=== PATIENT | male | born 1960 | race Caucasian/White ===

== ENCOUNTER 2023-05-17 15:55 | Inpatient (IN) | payer MEDICAID ==
[~2023-05-17] VITALS: Ht 182.9 cm; Wt 115.7 kg
[2023-05-17 16:00] VITALS: BP 135/84; PULSE 74; RESP 20; TEMP 97.2
[2023-05-17] MEDS ORDERED: HEPARIN 25,000 UNITS PREMIX 250 ML IV SCH (19:00)
[2023-05-17 20:30] VITALS: BP 147/64; PULSE 76; RESP 18; TEMP 98.8
[2023-05-17 21:37] LABS: CALCIUM 9.5 mg/dL (8.5-10.1); CARBON DIOXIDE 27 mEq/L (21-32); CHLORIDE 103 mEq/L (98-107); GLUCOSE 105 mg/dL (70-105); INDEX HEMOLYSI 1 (1-3); INDEX ICTERIC 1 (1-4); INDEX LIPEMIC 1 (1-3); INR 1.1; PARTIAL THROMBOPLASTIN TIME 25.7 sec (23.4-31.0); PROTHROMBIN TIME 11.6 sec (9.6-11.0); SODIUM 139 mEq/L (136-145); UREA NITROGEN BLOOD 20 mg/dL (7-21)
[2023-05-17 21:41] LABS: CREATININE 0.7 mg/dL (0.6-1.3)
[2023-05-17 21:44] LABS: BASOPHILS % 0.6 % (0.0-2.0); EOSINOPHILS % 2.1 % (0.0-5.0); HEMATOCRIT. 42.6 % (42.0-52.0); HEMOGLOBIN. 14.7 g/dL (14.0-18.0); LYMPHOCYTES % 20.6 % (20.0-50.0); MEAN CORPUSCULAR HEMOGLOBIN 28.5 pg (28.0-32.0); MEAN CORPUSCULAR HGB CONC 34.6 g/dL (31.0-37.0); MEAN CORPUSCULAR VOLUME 82.4 fL (80.0-94.0); MEAN PLATELET VOLUME 7.5 fl (7.4-10.4); MONOCYTES % 7.9 % (2.0-8.0); NEUTROPHILS % 68.8 % (40.0-76.0); PLATELET 190 x1000/uL (130-400); RED BLOOD CELL COUNT 5.17 mill/uL (4.7-6.1); RED CELL DISTRIBUTION WIDTH 13.5 % (11.6-14.6); WHITE BLOOD COUNT 6.7 x1000/uL (4.5-11.0)
[2023-05-17] MEDS ORDERED: HEPARIN 80 UNITS/KG BOLUS IV SCH (22:00)
[2023-05-17 22:02] LABS: POTASSIUM 2.7 mEq/L (3.5-5.1)
[2023-05-17] MEDS ORDERED: POTASSIUM CHLORIDE 20MEQ TABLET SR PO NR (23:15)
[2023-05-17] MEDS: HYDRALAZINE HCL 25MG TABLET PO SCH (23:42)
[2023-05-17] MEDS: HEPARIN 25,000 UNITS PREMIX 250 ML IV SCH (23:50)
[2023-05-18] VITALS (7 sets, daily range): BP systolic 125–165; BP diastolic 67–105; PULSE 69–92; RESP 18–20; TEMP 97.5–99
[2023-05-18] MEDS ORDERED: ACETAMINOPHEN 325MG TABLET PO PRN (00:15)
[2023-05-18] MEDS ORDERED: ONDANSETRON HCL 4MG/2ML INJ IV PRN (00:15)
[2023-05-18] MEDS ORDERED: HEPARIN BOLUS PRN aPTT 37-44 IV (04:00)
[2023-05-18 04:22] LABS: CHLORIDE 105 mEq/L (98-107); INDEX HEMOLYSI 1 (1-3); INDEX ICTERIC 1 (1-4); INDEX LIPEMIC 1 (1-3); POTASSIUM 3.1 mEq/L (3.5-5.1); SODIUM 138 mEq/L (136-145)
[2023-05-18 04:27] LABS: CALCIUM 9.4 mg/dL (8.5-10.1); CARBON DIOXIDE 28 mEq/L (21-32); CREATININE 0.8 mg/dL (0.6-1.3); GLUCOSE 119 mg/dL (70-105); UREA NITROGEN BLOOD 20 mg/dL (7-21)
[2023-05-18 04:29] LABS: BASOPHILS % 0.6 % (0.0-2.0); HEMATOCRIT. 42.1 % (42.0-52.0); HEMOGLOBIN. 14.7 g/dL (14.0-18.0); LYMPHOCYTES % 15.6 % (20.0-50.0); MEAN CORPUSCULAR HEMOGLOBIN 28.8 pg (28.0-32.0); MEAN CORPUSCULAR HGB CONC 34.9 g/dL (31.0-37.0); MEAN CORPUSCULAR VOLUME 82.7 fL (80.0-94.0); MEAN PLATELET VOLUME 7.6 fl (7.4-10.4); MONOCYTES % 6.4 % (2.0-8.0); NEUTROPHILS % 75.4 % (40.0-76.0); PLATELET 189 x1000/uL (130-400); RED BLOOD CELL COUNT 5.09 mill/uL (4.7-6.1); RED CELL DISTRIBUTION WIDTH 13.3 % (11.6-14.6); WHITE BLOOD COUNT 8.4 x1000/uL (4.5-11.0)
[2023-05-18] MEDS: HEPARIN 25,000 UNITS PREMIX 250 ML IV SCH (05:50)
[2023-05-18] MEDS: HYDRALAZINE HCL 25MG TABLET PO SCH ×3 (06:00→21:08)
[2023-05-18] MEDS: AMLODIPINE 5MG TABLET PO SCH (10:26)
[2023-05-18] MEDS: HEPARIN BOLUS PRN aPTT <36 IV (13:19)
[2023-05-18] MEDS ORDERED: POTASSIUM CHLORIDE INJ 40 MEQ in DEXT 5% WATER 250 ML IV NR (23:30)
[2023-05-19] VITALS: BP 130/74; PULSE 95; RESP 18; TEMP 101.7
[2023-05-19] MEDS ORDERED: CEFTRIAXONE 1,000 MG in DEXTROSE 5% WATER 50 ML IV SCH (01:30)
[2023-05-19 04:00] VITALS: BP_SYST 180; BP_SYST 97; BP_DIAS 48; BP_DIAS 91; PULSE 68; PULSE 81; RESP 18; TEMP 97.9
[2023-05-19] MEDS: HEPARIN BOLUS PRN aPTT <36 IV (04:54)
[2023-05-19] MEDS: HEPARIN 25,000 UNITS PREMIX 250 ML IV SCH (06:38)
[2023-05-19] MEDS: HYDRALAZINE HCL 25MG TABLET PO SCH ×3 (06:39→22:38)
[2023-05-19 07:05] LABS: BASOPHILS % 0.6 % (0.0-2.0); EOSINOPHILS % 2.2 % (0.0-5.0); HEMATOCRIT. 40.6 % (42.0-52.0); HEMOGLOBIN. 14.2 g/dL (14.0-18.0); LYMPHOCYTES % 18.4 % (20.0-50.0); MEAN CORPUSCULAR HEMOGLOBIN 29.1 pg (28.0-32.0); MEAN CORPUSCULAR VOLUME 83.2 fL (80.0-94.0); MEAN PLATELET VOLUME 7.6 fl (7.4-10.4); MONOCYTES % 7.3 % (2.0-8.0); NEUTROPHILS % 71.5 % (40.0-76.0); PLATELET 197 x1000/uL (130-400); RED BLOOD CELL COUNT 4.88 mill/uL (4.7-6.1); RED CELL DISTRIBUTION WIDTH 13.4 % (11.6-14.6); WHITE BLOOD COUNT 7.5 x1000/uL (4.5-11.0)
[2023-05-19 08:00] VITALS: BP 155/84; PULSE 88; RESP 18; TEMP 96.3
[2023-05-19 08:46] LABS: POTASSIUM 3.3 mEq/L (3.5-5.1)
[2023-05-19 08:55] LABS: CALCIUM 9.1 mg/dL (8.5-10.1); CREATININE 0.8 mg/dL (0.6-1.3)
[2023-05-19] MEDS: AMLODIPINE 5MG TABLET PO SCH (10:11)
[2023-05-19 12:00] VITALS: BP 149/92; PULSE 78; RESP 17; TEMP 97.7
[2023-05-19] MEDS ORDERED: POTASSIUM CHLORIDE 20MEQ TABLET SR PO NR (14:15)
[2023-05-19 16:00] VITALS: BP 151/104; PULSE 86; RESP 18; TEMP 96.8
[2023-05-19 20:00] VITALS: BP 149/87; PULSE 72; RESP 16; TEMP 97.1
[2023-05-19] MEDS: ENOXAPARIN 120MG/0.8ML SYR SUBCUT SCH (20:00)
[2023-05-20 04:00] VITALS: BP 142/82; PULSE 67; RESP 16; TEMP 97
[2023-05-20] MEDS: HYDRALAZINE HCL 25MG TABLET PO SCH ×4 (05:19→21:01)
[2023-05-20 06:55] LABS: BASOPHILS % 0.8 % (0.0-2.0); HEMATOCRIT. 39.9 % (42.0-52.0); HEMOGLOBIN. 13.6 g/dL (14.0-18.0); LYMPHOCYTES % 20.2 % (20.0-50.0); MEAN CORPUSCULAR HEMOGLOBIN 28.4 pg (28.0-32.0); MEAN CORPUSCULAR HGB CONC 34.1 g/dL (31.0-37.0); MEAN CORPUSCULAR VOLUME 83.3 fL (80.0-94.0); MEAN PLATELET VOLUME 7.8 fl (7.4-10.4); MONOCYTES % 8.4 % (2.0-8.0); NEUTROPHILS % 68.6 % (40.0-76.0); PLATELET 203 x1000/uL (130-400); RED BLOOD CELL COUNT 4.79 mill/uL (4.7-6.1); RED CELL DISTRIBUTION WIDTH 13.6 % (11.6-14.6); WHITE BLOOD COUNT 6.5 x1000/uL (4.5-11.0)
[2023-05-20 08:00] VITALS: BP 143/97; PULSE 72; RESP 18; TEMP 98.6
[2023-05-20] MEDS: ENOXAPARIN 120MG/0.8ML SYR SUBCUT SCH ×2 (08:00→20:00)
[2023-05-20 08:33] LABS: CHLORIDE 107 mEq/L (98-107); INDEX HEMOLYSI 1 (1-3); INDEX ICTERIC 1 (1-4); INDEX LIPEMIC 1 (1-3); POTASSIUM 3.5 mEq/L (3.5-5.1); SODIUM 140 mEq/L (136-145)
[2023-05-20 08:45] LABS: CALCIUM 9.2 mg/dL (8.5-10.1); CARBON DIOXIDE 26 mEq/L (21-32); CREATININE 0.8 mg/dL (0.6-1.3); GLUCOSE 89 mg/dL (70-105); UREA NITROGEN BLOOD 21 mg/dL (7-21)
[2023-05-20] MEDS: AMLODIPINE 5MG TABLET PO SCH (09:00)
[2023-05-20 12:00] VITALS: BP 138/73; PULSE 81; RESP 18; TEMP 97.5
[2023-05-20 16:00] VITALS: BP 160/83; PULSE 74; RESP 20; TEMP 97.7
[2023-05-20 20:00] VITALS: BP 149/88; PULSE 74; RESP 19; TEMP 97.9
[2023-05-21] VITALS: BP 154/80; PULSE 61; RESP 18; TEMP 98.1
[2023-05-21] MEDS: HYDRALAZINE HCL 25MG TABLET PO SCH ×3 (05:27→21:19)
[2023-05-21 08:00] VITALS: BP 189/99; PULSE 64; RESP 18; TEMP 97.7
[2023-05-21] MEDS: AMLODIPINE 5MG TABLET PO SCH (08:30)
[2023-05-21] MEDS: ENOXAPARIN 120MG/0.8ML SYR SUBCUT SCH ×2 (08:31→21:00)
[2023-05-21 12:00] VITALS: BP 156/82; PULSE 65; RESP 18; TEMP 97.9
[2023-05-21 16:00] VITALS: BP 165/99; PULSE 72; RESP 18; TEMP 98
[2023-05-22] MEDS: HYDRALAZINE HCL 25MG TABLET PO SCH ×3 (06:29→21:37)
[2023-05-22] MEDS: ENOXAPARIN 120MG/0.8ML SYR SUBCUT SCH ×2 (09:00→21:00)
[2023-05-22] MEDS: AMLODIPINE 5MG TABLET PO SCH ×2 (09:00→18:41)
[2023-05-22 12:00] VITALS: BP 171/83; PULSE 82; RESP 20; TEMP 96.7
[2023-05-22 16:00] VITALS: BP 174/90; PULSE 76; RESP 19; TEMP 98.6
[2023-05-23] MEDS: HYDRALAZINE HCL 25MG TABLET PO SCH ×3 (06:10→21:25)
[2023-05-23 08:00] VITALS: BP 140/90; PULSE 80; RESP 18; TEMP 96.9
[2023-05-23] MEDS: ENOXAPARIN 120MG/0.8ML SYR SUBCUT SCH (09:00)
[2023-05-23] MEDS: AMLODIPINE 5MG TABLET PO SCH (09:18)
[2023-05-23 12:00] VITALS: BP 122/76; PULSE 81; RESP 19; TEMP 97.2
[2023-05-23 16:00] VITALS: BP 141/91; PULSE 93; RESP 18; TEMP 97.7
[2023-05-23 20:00] VITALS: BP 164/87; PULSE 80; RESP 18; TEMP 98
[2023-05-24] VITALS: PULSE 68; RESP 18; TEMP 98.4
[2023-05-24 04:00] VITALS: PULSE 80; RESP 18; TEMP 98
[2023-05-24] MEDS: HYDRALAZINE HCL 25MG TABLET PO SCH ×3 (05:39→21:22)
[2023-05-24 06:59] VITALS: BP 152/92
[2023-05-24 08:00] VITALS: BP 152/85; PULSE 83; RESP 16; TEMP 97.7
[2023-05-24] MEDS: ENOXAPARIN 120MG/0.8ML SYR SUBCUT SCH ×2 (09:00→21:00)
[2023-05-24] MEDS: AMLODIPINE 5MG TABLET PO SCH (09:00)
[2023-05-24 16:00] VITALS: BP 115/76; PULSE 76; RESP 17; TEMP 98.1
[2023-05-24 20:00] VITALS: BP 143/78; PULSE 74; RESP 19; TEMP 97.5
[2023-05-25] VITALS: BP 168/91; PULSE 86; RESP 17; TEMP 98.7
[2023-05-25 08:00] VITALS: BP 151/78; PULSE 65; RESP 19; TEMP 97.9
[2023-05-25] MEDS: ENOXAPARIN 120MG/0.8ML SYR SUBCUT SCH ×2 (09:00→21:00)
[2023-05-25] MEDS: AMLODIPINE 5MG TABLET PO SCH (09:12)
[2023-05-25 12:00] VITALS: BP 161/75; PULSE 93; RESP 20; TEMP 98.1
[2023-05-25] MEDS: HYDRALAZINE HCL 25MG TABLET PO SCH ×2 (13:59→22:00)
[2023-05-25 16:00] VITALS: BP 162/74; PULSE 94; RESP 19; TEMP 97.8
[2023-05-26 04:00] VITALS: BP 155/78; PULSE 70; RESP 19; TEMP 98
[2023-05-26] MEDS: HYDRALAZINE HCL 25MG TABLET PO SCH ×3 (06:00→21:03)
[2023-05-26 08:00] VITALS: BP 157/98; PULSE 81; RESP 20; TEMP 97.9
[2023-05-26] MEDS: AMLODIPINE 5MG TABLET PO SCH (08:17)
[2023-05-26] MEDS: ENOXAPARIN 120MG/0.8ML SYR SUBCUT SCH ×2 (08:18→21:00)
[2023-05-26 12:00] VITALS: BP 148/99; PULSE 79; RESP 20; TEMP 98.7
[2023-05-26 16:00] VITALS: BP 162/97; PULSE 88; RESP 20; TEMP 97.7
[2023-05-27] MEDS: HYDRALAZINE HCL 25MG TABLET PO SCH ×3 (06:00→21:44)
[2023-05-27 08:00] VITALS: BP 152/84; PULSE 75; RESP 19; TEMP 96.1
[2023-05-27] MEDS: ENOXAPARIN 120MG/0.8ML SYR SUBCUT SCH ×2 (09:00→21:00)
[2023-05-27] MEDS: AMLODIPINE 5MG TABLET PO SCH (10:55)
[2023-05-27 12:00] VITALS: BP 141/90; PULSE 77; RESP 20; TEMP 96.7
[2023-05-27 15:46] VITALS: BP 156/86; PULSE 89; RESP 18; TEMP 96.8
[2023-05-28] VITALS: BP 161/94; PULSE 86; RESP 18; TEMP 97.5
[2023-05-28] MEDS: HYDRALAZINE HCL 25MG TABLET PO SCH (05:44)
[2023-05-28] MEDS: ENOXAPARIN 120MG/0.8ML SYR SUBCUT SCH (09:00)
[2023-05-28] MEDS: AMLODIPINE 5MG TABLET PO SCH (09:00)
== END 2023-05-28 11:30 | DRG 197 ==
LOC: 8WST 15:55 → 6EST 05-20 16:09
PROVIDERS: ADMIT Physical Medicine & Rehabilitation Spinal Cord Injury Medicine; ATTEND Internal Medicine
DX: I82.412 Acute embolism and thrombosis of left femoral vein (principal); G93.41 Metabolic encephalopathy; I65.01 Occlusion and stenosis of right vertebral artery; I82.432 Acute embolism and thrombosis of left popliteal vein; E87.6 Hypokalemia; E66.01 Morbid (severe) obesity due to excess calories; R47.1 Dysarthria and anarthria; R53.81 Other malaise; Z20.822 Contact with and (suspected) exposure to COVID-19; E55.9 Vitamin D deficiency, unspecified; E78.5 Hyperlipidemia, unspecified; I10 Essential (primary) hypertension; I25.10 Atherosclerotic heart disease of native coronary artery without angina pectoris; Z68.36 Body mass index [BMI] 36.0-36.9, adult; Z99.3 Dependence on wheelchair; Z86.73 Personal history of transient ischemic attack (TIA), and cerebral infarction without residual deficits
CPT/HCPCS: 36415; 71045; 80048; 83735; 84145; 85025; 87426; 87804; 92610; 93970; 97112; 97162; 97167; 97530; 97535; J0696; J1644; J1650; J2405; J3480; J7060